=== PATIENT | female | born 1950 | race Caucasian/White ===

== ENCOUNTER → 2023-08-16 13:03 | Outpatient (REF) | payer MEDICARE, BC, OTHER, SELFPAY | LOC: HWRAD 13:03 | PROVIDERS: ATTENDING PHYSICIAN Podiatrist; FAMILY PHYSICIAN Family Medicine | DX: S92.354A Nondisplaced fracture of fifth metatarsal bone, right foot, initial encounter for closed fracture (principal) | CPT/HCPCS: 73630 ==

== ENCOUNTER → 2023-12-23 09:17 | Outpatient (REF) | payer MEDICARE, BC, OTHER, SELFPAY | LOC: HWRAD 09:17 | PROVIDERS: ATTENDING PHYSICIAN Internal Medicine Rheumatology; FAMILY PHYSICIAN Family Medicine; REFERRING PHYSICIAN Obstetrics & Gynecology Gynecology | DX: Z12.31 Encounter for screening mammogram for malignant neoplasm of breast (principal); M81.0 Age-related osteoporosis without current pathological fracture | CPT/HCPCS: 77063; 77067; 77080; 77081 ==

== ENCOUNTER → 2024-06-29 11:56 | Outpatient (REF) | payer MEDICARE, BC, OTHER, SELFPAY | LOC: SDSPAT 11:56 | PROVIDERS: ATTENDING PHYSICIAN Surgery; FAMILY PHYSICIAN Family Medicine | DX: K40.90 Unilateral inguinal hernia, without obstruction or gangrene, not specified as recurrent (principal) | CPT/HCPCS: 36415; 93005 ==

== ENCOUNTER 2024-07-13 06:16 | Day surgery (SDC) | payer MEDICARE, BC, OTHER, SELFPAY ==
[2024-06-29 14:09] VITALS: BMI 29.0
[2024-07-13] VITALS (11 sets, daily range): BP systolic 111–154; BP diastolic 42–80; BMI 29.0
[2024-07-13] MEDS: NORMOSOL-R/PLASMALYTE-A 1000 IV (10:37)
[2024-07-13] MEDS: TYLENOL 1000 MG PO (10:38)
[2024-07-13] MEDS: HEPARIN 5000 UNITS SC (10:39)
--- NOTE | 2024-07-13 11:53 | OR.RPT ---
Operative Report
Operative Report
Primary Surgeon: Myrna
Assisting: Tomás ZAMARRIPA
Pre-op Diagnosis: Right inguinal hernia
Post-op Diagnosis: Same
Procedure Performed: Robot assisted laparoscopic repair of right inguinal hernia
Anesthesia Type: GETA
Specimen / Cultures: None
Estimated Blood Loss: 3cc
Complications: None immediate
Operative Findings: Indirect defect, round ligament sacrificed low, moderate round ligament lipoma reduced; XL MID 3D max
Date of surgery: 07/13/24
Indications:� This 74F developed an asymptomatic right inguinal hernia. Expectant management is not recommended in female patients due to risk of femoral hernia. Robot assisted laparoscopic repair of right inguinal hernia was planned.
Description of procedure:� The patient was taken to the operating room and positioned into supine position. The patient�s abdomen was prepped and draped in standard sterile fashion. A time-out was completed verifying correct patient, procedure,
site, positioning, and implants and special equipment prior to beginning this procedure.
The groin hernia was manually reduced. A stab incision was made in the left upper quadrant, a Veress needle was inserted and proper position was confirmed by aspiration and saline drop test. Following this, pneumoperitoneum was created with
insufflation of carbon dioxide to 12 mmHg. Then a 8mm robotic trocar was inserted above and to the left of the umbilicus. A laparoscope was inserted and the area of initial trocar entry and Veress needle placement were both inspected and no injuries
were found. Two 8mm trocars were then placed lateral to the rectus sheath under direct visualization.
Both inguinal regions were inspected and the median umbilical ligament, medial umbilical ligament, and lateral umbilical fold were identified. Attention was turned to the right groin. The peritoneum was incised transversely above the defect and a
flap was developed in the caudad direction. Wei�s ligament was identified and was ultimately dissected to its junction with the iliac vein and the space of Retzius was developed bluntly.� The dissection was continued inferiorly to the iliopubic
tract, with care taken to avoid injury to the femoral branch of the genitofemoral nerve and the lateral femoral cutaneous nerve. The round ligament was sacrificed low near the interface with the peritoneum.
The direct space was inspected and a hernia defect was not identified. The femoral space was inspected no defect was identified.� The indirect space was inspected and a hernia was identified and reduced by gentle traction. The canal was inspected
and a moderate round ligament lipoma was identified.
Extra large right MID 3D max mesh was passed through a trocar. The mesh was placed into the preperitoneal space and moved into position to lay flat and completely cover the direct, indirect, and femoral spaces with overlap at the midline. The mesh
was secured into place using 2-0 vicryl suture to Wei�s ligament medially and laterally. Care was taken to avoid the inferolateral triangles containing the iliac vessels and genital nerves. The peritoneal flap was closed over the mesh and secured
with 2-0 monocryl stratafix suture in similar positions of safety. A 14g angiocath was used to decompress the preperitoneal space revealing good seal and all mesh in good position without folding or curling.
After ensuring adequate hemostasis, the trocars were removed and the pneumoperitoneum allowed to escape. The trocar incisions were closed at the skin level using 4-0 monocryl and topical skin adhesive. All counts were correct and the patient
tolerated the procedure well and was taken to the postanesthesia care unit in stable condition.
[2024-07-13] MEDS: ZOFRAN 4 MG IV (12:03)
[2024-07-13] MEDS: COMPAZINE 5 MG IV (12:18)
[2024-07-13] MEDS: SUBLIMAZE 50 MCG IV (12:30)
== END 2024-07-13 14:08 | disposition home or self-care (01) ==
LOC: SDS 06:16
PROVIDERS: ATTENDING PHYSICIAN Surgery; FAMILY PHYSICIAN Family Medicine
DX: K40.90 Unilateral inguinal hernia, without obstruction or gangrene, not specified as recurrent (principal); D17.79 Benign lipomatous neoplasm of other sites
CPT/HCPCS: 49650; S2900; C1781

== ENCOUNTER → 2024-10-09 14:20 | Outpatient (REF) | payer MEDICARE, BC, OTHER, SELFPAY | LOC: HWRAD 14:20 | PROVIDERS: ATTENDING PHYSICIAN Podiatrist; FAMILY PHYSICIAN Family Medicine | DX: M84.374A Stress fracture, right foot, initial encounter for fracture (principal); M81.0 Age-related osteoporosis without current pathological fracture | CPT/HCPCS: 73630 ==

== ENCOUNTER → 2024-12-14 15:57 | Outpatient (REF) | payer MEDICARE, BC, OTHER, SELFPAY | LOC: RAD 15:57 | PROVIDERS: ATTENDING PHYSICIAN Family Medicine | DX: M79.662 Pain in left lower leg (principal); M06.9 Rheumatoid arthritis, unspecified; E78.2 Mixed hyperlipidemia; I10 Essential (primary) hypertension; D69.6 Thrombocytopenia, unspecified | CPT/HCPCS: 93971 ==

== ENCOUNTER → 2024-12-25 13:08 | Outpatient (REF) | payer MEDICARE, BC, OTHER, SELFPAY | LOC: HWWDC 13:08 | PROVIDERS: ATTENDING PHYSICIAN Obstetrics & Gynecology Gynecology; FAMILY PHYSICIAN Family Medicine | DX: Z12.31 Encounter for screening mammogram for malignant neoplasm of breast (principal) | CPT/HCPCS: 77063; 77067 ==